=== PATIENT | female | born 1995 | race African-American/Black ===

== ENCOUNTER 2021-04-08 21:19 | Emergency (ER) | payer OTHER ==
[~2021-04-08] VITALS: Ht 149.9 cm; Wt 56.7 kg
[2021-04-08 21:25] VITALS: BP 111/75
[2021-04-08] MEDS ORDERED: ACETAMINOPHEN325 M1 PO (21:31)
[2021-04-08 21:58] LABS: URINE BILIRUBIN NEGATIVE (Negative); URINE BLOOD 3+ (Negative); URINE CLARITY CLEAR; URINE COLOR YELLOW; URINE GLUCOSE-RANDOM* NEGATIVE (Negative); URINE KETONES NEGATIVE (Negative); URINE LEUKOCYTES-REFLEX TRACE (Negative); URINE NITRITE-REFLEX NEGATIVE (Negative); URINE PROTEIN (DIPSTICK) NEGATIVE (Negative); URINE UROBILINOGEN 0.2 E.U./dl (0.2-1.0)
[2021-04-08 22:17] LABS: SQUAMOUS 4-10 Moderate /LPF (0-3); URINE WBC-REFLEX 0-5 Rare /HPF (0-5)
[2021-04-08 22:18] LABS: CASTS None Seen /LPF (None Seen); CRYSTALS None Seen /LPF (None Seen); MUCUS 0-3 Light strn/LPF (None Seen)
== END 2021-04-08 22:30 | disposition home or self-care (01) ==
LOC: ER 21:19
PROVIDERS: Nurse Practitioner
DX: R50.9 Fever, unspecified (principal); Z20.822 Contact with and (suspected) exposure to COVID-19; Z79.899 Other long term (current) drug therapy